=== PATIENT | male | born 1955 | race Caucasian/White ===

== ENCOUNTER → 2021-02-26 09:37 | Outpatient (CLI) | payer OTHER, SELFPAY ==
--- NOTE | 2021-02-26 09:40 | DI.RAD.S_ITS ---
PROCEDURE: XR TOE LT MIN 2V INDICATIONS: l toe pain TECHNIQUE: 3 views of the left 1st toe(s) acquired. COMPARISON: None. FINDINGS: Bones: Subtle radiolucency is noted involving plantar aspect of 1st distal phalangeal base extending to 1st interphalangeal joint space. Moderate 1st MTP joint osteoarthritic changes are noted with joint space narrowing, subchondral sclerosis and prominent marginal osteophyte formation. No suspicious bony lesions. Soft tissues: No suspicious soft tissue densities. IMPRESSION: Finding is concerning for a subtle nondisplaced fracture involving plantar aspect of 1st distal phalangeal base. Moderate 1st MTP joint osteoarthritis. Dictated by: Jake Renteria M.D. on 02/26/2021 at 10:16 Approved by: Jake Renteria M.D. on 02/26/2021 at 10:20
== END ==
PROVIDERS: Referring Provider Physician Assistant; Visit Provider Physician Assistant
DX: M79.675 Pain in left toe(s) (principal); M19.072 Primary osteoarthritis, left ankle and foot
CPT/HCPCS: 73660